=== PATIENT | female | born 1950 | race Caucasian/White ===

== ENCOUNTER 2021-09-03 17:26 | Emergency (ER) | payer MEDICARE, OTHER ==
[~2021-09-03] VITALS: Ht 154.9 cm; Wt 93.0 kg
[2021-09-03] MEDS ORDERED: DOXYCYCLINE HY100 MG PO (19:09)
== END 2021-09-03 19:23 | disposition home or self-care (01) ==
LOC: ER 18:22
DX: R05.9 Cough, unspecified (principal); J18.9 Pneumonia, unspecified organism; Z20.822 Contact with and (suspected) exposure to COVID-19
CPT/HCPCS: 71045; 99283; U0002